=== PATIENT | male | born 1950 | race Caucasian/White ===

== ENCOUNTER 2020-12-27 16:26 | Inpatient (IN) | payer MEDICARE, MEDICAID ==
[~2020-12-27] VITALS: Ht 175.3 cm; Wt 47.8 kg
--- NOTE | 2020-12-27 17:00 | NUR ---
PT PLACED ON ALL ROOM MONITORING, ST ON MONITOR. EKG COMPLETED ON ARRIVAL. OXYGEN MAINTAINED AT 2LITERS. PT ROLLED TO SIDE POSITION TO ASSESS SKIN. PT WITH MULTIPLE AREA OF PRESSURE POINTS/BREAKDOWN. R BUTTOCK WOUND PRESENT. MULTIPLE ABRASIONS AND BRUISES IN VARYING STAGES NOTED TO BODY. PT REPORTS OF MULTIPLE FALLS, WEAKNESS, DECREASED APPETITE FOR SEVERAL WEEKS. URINAL AT BS. CALL LIGHT WITHIN REACH, WARM BLANKET PROVIDED.
[2020-12-27] MEDS ORDERED: CLOP75TA52 PO (17:51)
[2020-12-27] MEDS ORDERED: CHOL10003 PO (17:51)
[2020-12-27] MEDS ORDERED: PANT40TA6 PO (17:51)
[2020-12-27] MEDS ORDERED: CYCL5TAB PO (17:51)
[2020-12-27] MEDS ORDERED: GABA600T7 PO (17:51)
[2020-12-27] MEDS ORDERED: POTA20PA25 PO (17:51)
[2020-12-27] MEDS ORDERED: NITR0.4T28 SL (17:51)
[2020-12-27] MEDS ORDERED: TRAZ150T62 PO (17:51)
[2020-12-27] MEDS ORDERED: CARV3.122 PO (17:51)
[2020-12-27] MEDS ORDERED: FERR324T5 PO (17:51)
[2020-12-27] MEDS ORDERED: HYDR-3248 PO (17:51)
[2020-12-27] MEDS ORDERED: SODI1TAB PO (17:51)
[2020-12-27] MEDS ORDERED: POLYETHYLENE GLYCOL 17 GM PACKET PO PRN (18:00)
[2020-12-27] MEDS ORDERED: HYDROmorphone 2 MG/ML, 1ML IVPush PRN (18:00)
[2020-12-27] MEDS ORDERED: MELATONIN 5 MG TABLET PO PRN (18:00)
[2020-12-27] MEDS ORDERED: ACETAMINOPHEN 325 MG TABLET PO PRN (18:00)
[2020-12-27] MEDS ORDERED: ONDANSETRON 2MG/ML, 2ML IVPush PRN (18:00)
--- NOTE | 2020-12-27 18:30 | NUR ---
PT RESTING COMFORTABLY, ASSISTED WITH URINAL AND REPOSITIONING IN BED. PT WATCHING TV. CALL LIGHT WITHIN REACH. HOSPITAL BED ORDERED.
[2020-12-27 18:46] LABS: ANION GAP 10 mmol/L (5-15); CALCIUM 7.9 mg/dL (8.5-10.1); CHLORIDE 87 mmol/L (98-107); CREATININE 0.56 mg/dL (0.7-1.3)
[2020-12-27 18:50] LABS: PREALBUMIN 13.5 mg/dL (20.0-40.0)
--- NOTE | 2020-12-27 19:02 | NUR ---
CONFIRMED WITH [facility], NO NEED FOR RAPID COVID TEST. COVID AND FLU TESTS COMPLETED AT [place] AND NEGATIVE. PT RECEIVED TWO COVID VACCINES THIS YEAR AND IS FULLY VACCINATED. NO SURGERY UNTIL MEDICALLY CLEARED. CHEM PANEL PENDING. REPORT GIVEN/TRANSFER OF CARE AT THIS TIME.
[2020-12-27] MEDS ORDERED: CARVEDILOL 3.125 MG TABLET ONE (19:12)
[2020-12-27] MEDS ORDERED: CEFAZOLIN PMX 1GM/50ML 50 ML ONE (19:12)
--- NOTE | 2020-12-27 19:12 | NUR ---
2ND CALL FROM FAMILY WHO WAS UPDATED ON PT'S CONDITION/POC WITH PT'S PERMISSION. REPORT TO ANEL DAS, TRANSFER OF CARE AT THIS TIME.
[2020-12-27] MEDS ORDERED: OXYcodone/APAP 5/325MG TABLET ONE (19:13)
[2020-12-27] MEDS ORDERED: NS + 20MEQ KCL 1,000 ML IV ONE (19:16)
[2020-12-27] MEDS: CARVEDILOL 3.125 MG TABLET PO SCH (19:23)
[2020-12-27] MEDS: CEFAZOLIN PMX 1GM/50ML 50 ML IV SCH (19:23)
--- NOTE | 2020-12-27 19:23 | NUR ---
CARE ASSUMED FROM THIAGO ZAIDI. FIRST CONTACT WITH PT. RAHEL. PT STABLE AND REPROTS MILD PAIN IN AFFECTED EXTREMITY. VSS. WILL CONTINUE TO MONITOR.
[2020-12-27] MEDS: OXYcodone IR 5MG TABLET PO PRN (19:24)
[2020-12-27] MEDS: NS + 20MEQ KCL 1,000 ML IV SCH (19:56)
--- NOTE | 2020-12-27 20:00 | NUR ---
REPORT GIVEN TO THIAGO HOLLIS.
[2020-12-27 20:39] VITALS: BP 94/61
[2020-12-27] MEDS: TRAZODONE 50MG TABLET PO PRN (21:49)
[2020-12-27] MEDS: GABAPENTIN 400 MG CAPSULE PO SCH (21:49)
[2020-12-28 01:59] LABS: CALCIUM 8.2 mg/dL (8.5-10.1); CHLORIDE 87 mmol/L (98-107); CREATININE 0.66 mg/dL (0.7-1.3)
[2020-12-28 02:04] VITALS: BP 100/53
[2020-12-28 02:05] LABS: ANION GAP 10 mmol/L (5-15)
[2020-12-28] MEDS: CEFAZOLIN PMX 1GM/50ML 50 ML IV SCH ×3 (03:17→21:04)
[2020-12-28] MEDS: CARVEDILOL 3.125 MG TABLET PO SCH ×2 (06:00→18:34)
[2020-12-28 06:03] LABS: BASOPHILS % (AUTO) 0 % (0-1); EOSINOPHILS % (AUTO) 0 % (1-7); LYMPHOCYTES % (AUTO) 4 % (22-44); MEAN CORPUSCULAR HGB CONC 35.1 g/dL (33.2-36.2); MEAN PLATELET VOLUME 7.6 fL (7.4-10.4); MONOCYTES % (AUTO) 3 % (2-9); NEUTROPHILS % (AUTO) 92 % (42-75); PLATELET COUNT 179 x10^3/uL (130-400); RED BLOOD COUNT 3.21 x10^6/uL (4.38-5.82); RED CELL DISTRIBUTION WIDTH 13.1 % (9.4-14.8)
[2020-12-28 06:17] LABS: ANION GAP 11 mmol/L (5-15); CALCIUM 8.2 mg/dL (8.5-10.1); CHLORIDE 87 mmol/L (98-107)
[2020-12-28 06:18] LABS: CREATININE 0.68 mg/dL (0.7-1.3)
[2020-12-28] MEDS ORDERED: VANCOMYCIN 1,000 MG ONE (06:26)
[2020-12-28] MEDS ORDERED: ROPIvacaine/PF 0.2%, 20 ML ONE (06:26)
[2020-12-28] MEDS ORDERED: TRANEXAMIC ACID 100 MG/ML, 10ML ONE ×2 (06:26)
[2020-12-28] MEDS ORDERED: KETOROLAC 60 MG/2 ML ONE (06:26)
[2020-12-28] MEDS ORDERED: SODIUM CHLORIDE 0.9% 0 ML ONE (06:27)
[2020-12-28] MEDS ORDERED: EPINEPHRINE 1 MG/ML, 1ML ONE (06:27)
[2020-12-28 06:38] LABS: INTERNATIONAL NORMALIZED RATIO 1.38 (0.93-1.1); PROTHROMBIN TIME 14.5 Seconds (9.6-11.5)
[2020-12-28] MEDS ORDERED: CHLORHEXIDINE 15 ML UDC ONE (06:42)
[2020-12-28] MEDS: NS + 20MEQ KCL 1,000 ML IV SCH ×2 (07:19→07:41)
[2020-12-28] MEDS: PANTOPRAZOLE 40MG TABLET PO SCH ×2 (07:19→07:50)
[2020-12-28] MEDS: OXYcodone IR 5MG TABLET PO PRN ×2 (07:50→21:05)
[2020-12-28] MEDS: GABAPENTIN 400 MG CAPSULE PO SCH ×2 (07:50→21:05)
[2020-12-28] MEDS: SENNA/DOCUSATE TABLET PO SCH (07:50)
[2020-12-28] MEDS ORDERED: SODIUM CHLORIDE 0.9% 1,000 ML IV SCH (08:00)
[2020-12-28 08:09] VITALS: BP 118/72
[2020-12-28 12:34] LABS: ANION GAP 8 mmol/L (5-15); CALCIUM 7.6 mg/dL (8.5-10.1); CHLORIDE 89 mmol/L (98-107); CREATININE 0.58 mg/dL (0.7-1.3)
[2020-12-28] MEDS ORDERED: SODIUM CHLORIDE 3% 500 ML IV SCH ×2 (13:30→20:00)
[2020-12-28 17:01] LABS: ANION GAP 10 mmol/L (5-15); CALCIUM 8.3 mg/dL (8.5-10.1); CHLORIDE 90 mmol/L (98-107); CREATININE 0.69 mg/dL (0.7-1.3)
[2020-12-28 18:31] VITALS: BP 111/69
[2020-12-28 19:04] VITALS: BP 121/87
[2020-12-28 19:13] LABS: ANION GAP 8 mmol/L (5-15); CHLORIDE 90 mmol/L (98-107); CREATININE 0.67 mg/dL (0.7-1.3)
[2020-12-28] MEDS: TRAZODONE 50MG TABLET PO PRN (21:05)
[2020-12-28 21:57] LABS: ANION GAP 10 mmol/L (5-15); CALCIUM 7.9 mg/dL (8.5-10.1); CHLORIDE 92 mmol/L (98-107); CREATININE 0.53 mg/dL (0.7-1.3)
[2020-12-29 02:31] LABS: ANION GAP 9 mmol/L (5-15); CHLORIDE 95 mmol/L (98-107); CREATININE 0.47 mg/dL (0.7-1.3)
[2020-12-29 03:14] VITALS: BP 133/75
[2020-12-29] MEDS: KETOROLAC 30 MG/1 ML IV PRN ×2 (03:17→10:15)
[2020-12-29] MEDS: CEFAZOLIN PMX 1GM/50ML 50 ML IV SCH (05:34)
[2020-12-29] MEDS: CARVEDILOL 3.125 MG TABLET PO SCH ×2 (06:00→18:08)
[2020-12-29 06:13] LABS: ANION GAP 7 mmol/L (5-15); CALCIUM 8.3 mg/dL (8.5-10.1); CHLORIDE 96 mmol/L (98-107); CREATININE 0.47 mg/dL (0.7-1.3)
[2020-12-29] MEDS: PANTOPRAZOLE 40MG TABLET PO SCH (07:30)
[2020-12-29 07:50] VITALS: BP 93/61
[2020-12-29] MEDS: POTASSIUM CHLORIDE 20 MEQ TAB.ER.PRT PO SCH ×2 (08:00→17:32)
[2020-12-29] MEDS ORDERED: CHLORHEXIDINE 15 ML UDC ONE (08:06)
[2020-12-29] MEDS ORDERED: CEFAZOLIN 1,000 MG ONE (08:26)
[2020-12-29] MEDS ORDERED: GLYCOPYRROLATE 0.2MG/1ML, 5ML ONE (08:26)
[2020-12-29] MEDS ORDERED: NEOSTIGMINE 1 MG/ML, 10ML ONE (08:26)
[2020-12-29] MEDS ORDERED: ROCURONIUM 10MG/ML,5ML ONE (08:26)
[2020-12-29] MEDS ORDERED: FENTANYL PF 250 MCG/5ML ONE (08:26)
[2020-12-29] MEDS ORDERED: PROPOFOL 10 MG/ML, 20ML ONE (08:26)
[2020-12-29] MEDS ORDERED: morphine SULFATE 10 MG/ML, 1ML IVPush PRN (08:30)
[2020-12-29] MEDS ORDERED: ACETAMINOPHEN 325 MG TABLET PO PRN (08:30)
[2020-12-29] MEDS ORDERED: OXYcodone 5 MG/5 ML ORAL.SOL UDC PO PRN (08:30)
[2020-12-29] MEDS ORDERED: HYDROmorphone 1 MG/ML, 1ML INJ IVPush PRN (08:30)
[2020-12-29] MEDS ORDERED: FENTANYL PF 100 MCG/2ML IV PRN (08:30)
[2020-12-29] MEDS ORDERED: LABETALOL 5MG/ML, 20ML IV PRN (08:30)
[2020-12-29] MEDS ORDERED: hydrALAzine 20 MG/ML, 1ML IV PRN (08:30)
[2020-12-29] MEDS ORDERED: CHLORHEXIDINE 15 ML UDC MM ONE (08:30)
[2020-12-29] MEDS ORDERED: ONDANSETRON 2MG/ML, 2ML IVPush PRN (08:30)
[2020-12-29] MEDS ORDERED: MEPERIDINE/PF 25MG/0.5ML IVPush PRN (08:30)
[2020-12-29] MEDS ORDERED: VASOPRESSIN 20 UNIT/ML, 1ML ONE (08:57)
[2020-12-29] MEDS ORDERED: SUGAMMADEX 200 MG/2 ML IVPush ONE (08:58)
[2020-12-29] MEDS ORDERED: METOPROLOL 1 MG/ML, 5ML ONE (08:59)
[2020-12-29] MEDS: SENNA/DOCUSATE TABLET PO SCH (09:00)
[2020-12-29] MEDS ORDERED: FENTANYL PF 100 MCG/2ML ONE (10:02)
[2020-12-29] MEDS ORDERED: KETOROLAC 30 MG/1 ML ONE (10:02)
[2020-12-29] MEDS ORDERED: METHOCARBAMOL 1,000 MG in DEXTROSE 5% 100 ML IV ONE (11:00)
[2020-12-29] MEDS ORDERED: ONDANSETRON ODT 4 MG PO PRN (12:00)
[2020-12-29] MEDS ORDERED: HYDROmorphone 2MG TABLET PO PRN (12:00)
[2020-12-29] MEDS: GABAPENTIN 400 MG CAPSULE PO SCH ×2 (12:42→22:12)
[2020-12-29] MEDS: SODIUM CHLORIDE FLUSH 3ML SYRINGE IVF SCH ×2 (12:43→22:12)
[2020-12-29] MEDS: OXYcodone IR 5MG TABLET PO PRN ×2 (12:43→19:45)
[2020-12-29 13:30] VITALS: BP 127/73
[2020-12-29 14:38] LABS: CHLORIDE 97 mmol/L (98-107)
[2020-12-29 14:44] LABS: ANION GAP 9 mmol/L (5-15); CALCIUM 7.5 mg/dL (8.5-10.1)
[2020-12-29] MEDS: CEFAZOLIN PMX 2GM/50ML 50 ML IVPB SCH (17:29)
[2020-12-29 17:45] LABS: ANION GAP 7 mmol/L (5-15); CALCIUM 8.4 mg/dL (8.5-10.1); CHLORIDE 97 mmol/L (98-107); CREATININE 0.55 mg/dL (0.7-1.3)
[2020-12-29 18:07] VITALS: BP 116/73
[2020-12-29] MEDS: KETOROLAC 30 MG/1 ML IVPush SCH (18:10)
[2020-12-29 19:40] VITALS: BP 105/65
[2020-12-29] MEDS: ASPIRIN 81 MG TABLET EC PO SCH (21:00)
[2020-12-29] MEDS: DOCUSATE 100 MG CAPSULE PO SCH (22:11)
[2020-12-29 23:06] LABS: ANION GAP 7 mmol/L (5-15); CALCIUM 8.2 mg/dL (8.5-10.1); CHLORIDE 97 mmol/L (98-107); CREATININE 0.63 mg/dL (0.7-1.3)
[2020-12-30 01:33] VITALS: BP 108/66
[2020-12-30] MEDS: KETOROLAC 30 MG/1 ML IVPush SCH ×2 (01:35→10:30)
[2020-12-30] MEDS: CEFAZOLIN PMX 2GM/50ML 50 ML IVPB SCH (01:35)
[2020-12-30] MEDS: HYDROcodone/APAP 7.5-325MG/15ML UDC PO PRN ×4 (01:52→18:50)
[2020-12-30 06:17] VITALS: BP 103/63
[2020-12-30] MEDS: CARVEDILOL 3.125 MG TABLET PO SCH ×2 (06:19→08:56)
[2020-12-30] MEDS: ENOXAPARIN 40 MG/0.4 ML SQ SCH (06:19)
[2020-12-30 07:43] VITALS: BP 97/60
[2020-12-30] MEDS: POTASSIUM CHLORIDE 20 MEQ TAB.ER.PRT PO SCH ×2 (08:47→17:47)
[2020-12-30] MEDS: PANTOPRAZOLE 40MG TABLET PO SCH (08:47)
[2020-12-30] MEDS: SODIUM CHLORIDE FLUSH 3ML SYRINGE IVF SCH ×2 (08:48→21:00)
[2020-12-30] MEDS: DOCUSATE 100 MG CAPSULE PO SCH ×2 (08:48→21:03)
[2020-12-30] MEDS: GABAPENTIN 400 MG CAPSULE PO SCH ×2 (08:49→21:03)
[2020-12-30] MEDS: ASPIRIN 81 MG TABLET EC PO SCH ×2 (08:50→21:00)
[2020-12-30] MEDS: SENNA/DOCUSATE TABLET PO SCH (10:30)
[2020-12-30 13:19] VITALS: BP 126/77
[2020-12-30 19:40] VITALS: BP 121/59
[2020-12-31] MEDS: HYDROcodone/APAP 7.5-325MG/15ML UDC PO PRN ×3 (00:27→10:52)
[2020-12-31 01:45] VITALS: BP 143/80
[2020-12-31 06:09] VITALS: BP 120/73
[2020-12-31] MEDS: ENOXAPARIN 40 MG/0.4 ML SQ SCH (06:13)
[2020-12-31] MEDS: CARVEDILOL 3.125 MG TABLET PO SCH ×2 (06:13→17:38)
[2020-12-31 06:40] LABS: MICROSCOPIC NOT IND
[2020-12-31 08:07] VITALS: BP 121/69
[2020-12-31] MEDS: SODIUM CHLORIDE FLUSH 3ML SYRINGE IVF SCH (09:00)
[2020-12-31] MEDS ORDERED: SODIUM CHLORIDE 1 GM TABLET PO SCH (09:00)
[2020-12-31] MEDS: GABAPENTIN 400 MG CAPSULE PO SCH (09:14)
[2020-12-31] MEDS: DOCUSATE 100 MG CAPSULE PO SCH (09:15)
[2020-12-31] MEDS: ASPIRIN 81 MG TABLET EC PO SCH ×2 (09:15→09:16)
[2020-12-31] MEDS: PANTOPRAZOLE 40MG TABLET PO SCH (09:15)
[2020-12-31] MEDS: POTASSIUM CHLORIDE 20 MEQ TAB.ER.PRT PO SCH ×2 (09:15→17:38)
[2020-12-31] MEDS: SENNA/DOCUSATE TABLET PO SCH (09:15)
[2020-12-31] MEDS ORDERED: ENOX40SY4 SQ (12:36)
[2020-12-31] MEDS ORDERED: HYDR-3241 PO (13:07)
[2020-12-31 13:11] VITALS: BP 122/73
[2020-12-31] MEDS ORDERED: BISACODYL 10 MG SUPP PR PRN ×2 (14:30)
[2020-12-31] MEDS ORDERED: METHYLNALTREXONE 12 MG/0.6 ML SYR SQ ONE (14:30)
[2020-12-31] MEDS ORDERED: MAGNESIUM HYDROXIDE 8%, 30ML UDC PO PRN (14:30)
== END 2020-12-31 18:22 | DRG 521 ==
LOC: ED 16:30 → EDIP 17:10 → ED 17:17 → 4NE 20:43
PROVIDERS: ADMIT Emergency Medicine; ATTEND Hospitalist
PROC: 0SRS0J9 Replacement of Left Hip Joint, Femoral Surface with Synthetic Substitute, Cemented, Open Approach (ICD-10-PCS; principal; 2020-12-29 09:00)
DX: S72.012A Unspecified intracapsular fracture of left femur, initial encounter for closed fracture (principal); E43 Unspecified severe protein-calorie malnutrition; E87.1 Hypo-osmolality and hyponatremia; F11.20 Opioid dependence, uncomplicated; F17.200 Nicotine dependence, unspecified, uncomplicated; G89.29 Other chronic pain; I10 Essential (primary) hypertension; E87.6 Hypokalemia; R09.02 Hypoxemia; R29.6 Repeated falls; R53.81 Other malaise; Z96.641 Presence of right artificial hip joint; Z86.711 Personal history of pulmonary embolism; Z86.718 Personal history of other venous thrombosis and embolism; Z98.1 Arthrodesis status; Z88.8 Allergy status to other drugs, medicaments and biological substances
CPT/HCPCS: 36415; 72170; 80048; 81003; 82533; 83930; 83935; 84134; 85025; 85610; 85730; 93005; 96374; C1713; G0378; J0171; J0690; J1170; J1650; J1885; J2704; J2710; J2795; J3010; J3370; J3480; C1762; C1776; J2800; J7030